=== PATIENT | female | born 1975 | race Caucasian/White ===

== ENCOUNTER 2022-11-15 08:52 | Outpatient (CLI) | payer SELFPAY ==
--- NOTE | 2022-11-15 11:00 | NEURO_ITS ---
Impression: # Non-diabetic complains of nocturnal paresthesia and numbness of hands. # Early right Carpal Tunnel Syndrome. # Left Carpal Tunnel Syndrome with ulnar to median cross innervation. # Needle/EMG exam not requested. Nerve Conduction Studies Anti Sensory Summary Table Stim Site NR Peak (ms) P-T Amp (?V) Site1 Site2 Delta-P (ms) Dist (cm) Arjun (m/s) Left Median Anti Sensory (2-3nd Digit) Wrist 4.6 47.1 Wrist 2-3nd Digit 4.6 14.0 30 Wrist 5.1 79.1 Wrist 2-3nd Digit 4.6 14.0 30 Right Median Anti Sensory (2-3nd Digit) Wrist 3.5 82.5 Wrist 2-3nd Digit 3.5 14.0 40 Wrist 3.5 80.9 Wrist 2-3nd Digit 3.5 14.0 40 Left Radial Anti Sensory (Base 1st Digit) Wrist 2.0 38.2 Wrist Base 1st Digit 2.0 0.0 Right Radial Anti Sensory (Base 1st Digit) Wrist 2.0 44.5 Wrist Base 1st Digit 2.0 0.0 Left Ulnar Anti Sensory (5th Digit) Wrist 2.6 87.8 Wrist 5th Digit 2.6 14.0 54 Right Ulnar Anti Sensory (5th Digit) Wrist 2.5 95.7 Wrist 5th Digit 2.5 14.0 56 Motor Summary Table Stim Site NR Onset (ms) O-P Amp (mV) Site1 Site2 Delta-0 (ms) Dist (cm) Arjun (m/s) Left Median Motor (Abd Poll Brev) Wrist 4.3 1.4 Elbow Wrist 5.2 31.0 60 Elbow 9.5 2.6 Right Median Motor (Abd Poll Brev) Wrist 3.3 9.3 Elbow Wrist 5.2 30.0 58 Elbow 8.5 8.2 Left Ulnar Motor (Abd Dig Minimi) Wrist 2.7 10.6 A Elbow Wrist 5.2 30.0 58 A Elbow 7.9 7.5 Right Ulnar Motor (Abd Dig Minimi) Wrist 2.2 8.6 A Elbow Wrist 5.3 31.0 58 A Elbow 7.5 6.9 F Wave Studies NR F-Lat (ms) L-R F-Lat (ms) Left Median (Mrkrs) (Abd Poll Brev) 29.55 1.35 Right Median (Mrkrs) (Abd Poll Brev) 28.20 1.35 Left Ulnar (Mrkrs) (Abd Dig Min) 27.93 0.75 Right Ulnar (Mrkrs) (Abd Dig Min) 27.19 0.75 MTDD
== END 2022-11-15 08:53 | disposition home or self-care (01) ==
PROVIDERS: PCP Physician Assistant; Visit Provider Family Medicine
DX: G56.03 Carpal tunnel syndrome, bilateral upper limbs (principal)
CPT/HCPCS: 95911